=== PATIENT | female | born 1970 | race African-American/Black ===

== ENCOUNTER 2021-04-29 18:53 | Inpatient (IN) | payer MEDICAID, OTHER ==
[~2021-04-29] VITALS: Ht 160 cm; Wt 124.3 kg
[~2021-04-29 18:53] MED LIST: AMOX125S12 PO; LEVO750T46 MT
[2021-04-29] MEDS ORDERED: VANCOMYCIN 1 G PREMIX 200 ML IV ONE (22:30)
[2021-04-29] MEDS ORDERED: SODIUM CHLORIDE 0.9% 1000ML BAG (SEPSIS BOLUS) IV ONE (22:30)
[2021-04-29] MEDS ORDERED: PIPERACILLIN/TAZ 3.375G PREMIX 50 ML IV ONE (22:30)
[2021-04-30 00:07] LABS: BASOPHILS % 0.3 % (0.0-2.0); EOSINOPHILS % 0.7 % (0.0-5.0); HEMATOCRIT. 30.6 % (36.0-48.0); HEMOGLOBIN. 10.2 g/dL (12.0-16.0); LYMPHOCYTES % 9.9 % (20.0-50.0); MEAN CORPUSCULAR HEMOGLOBIN 31.1 pg (28.0-32.0); MEAN CORPUSCULAR VOLUME 93.3 fL (81.0-99.0); MEAN PLATELET VOLUME 8.3 fl (7.4-10.4); MONOCYTES % 8.3 % (2.0-8.0); NEUTROPHILS % 80.8 % (40.0-76.0); PLATELET 339 x1000/uL (130-400); RED BLOOD CELL COUNT 3.28 mill/uL (4.2-5.4); RED CELL DISTRIBUTION WIDTH 13.7 % (11.6-14.6)
[2021-04-30 00:13] LABS: PROTHROMBIN TIME 10.9 sec (9.6-11.0)
[2021-04-30 00:19] LABS: CHLORIDE 96 mEq/L (98-107)
[2021-04-30 01:42] LABS: C REACTIVE PROTEIN QUANT > 190.0 mg/L (0.0-3.0)
[2021-04-30] MEDS ORDERED: MORPHINE SULFATE 4 MG/ML CPJ (NOT FOR IM USE) IV ONE (02:15)
[2021-04-30] MEDS ORDERED: MORPHINE SULFATE 2 MG/ML CPJ (NOT FOR IM USE) IV SCH (02:15)
[2021-04-30] MEDS ORDERED: DEXTROSE 50% WATER 50ML SYRINGE IV PRN (04:15)
[2021-04-30] MEDS ORDERED: INSULIN LISPRO 100 UNITS/ML SUBCUT SCH (05:00)
[2021-04-30 07:15] LABS: CLARITY URINE CLOUDY (CLEAR); COLOR URINE YELLOW (YELLOW); KETONES URINE 1+ (NEGATIVE); LEUKOCYTE ESTERASE URINE TRACE (NEGATIVE); NITRITE URINE NEGATIVE (NEGATIVE); OCCULT BLOOD URINE 3+ (NEGATIVE); PROTEIN URINE TRACE (NEGATIVE); SPECIFIC GRAVITY URINE 1.029 (1.005-1.030)
[2021-04-30] MEDS: INSULIN LISPRO (MEDIUM DOSE) 100 UNITS/ML SUBCUT SCH ×4 (08:00→22:15)
[2021-04-30] MEDS: BLOOD SUGAR DIAGNOSTIC STRIP TEST SCH ×4 (08:00→21:00)
[2021-04-30] MEDS ORDERED: MORPHINE SULFATE 2 MG/ML CPJ (NOT FOR IM USE) IV NR (08:15)
[2021-04-30 10:00] VITALS: BP 120/62
[2021-04-30] MEDS ORDERED: ONDANSETRON HCL 4MG/2ML INJ IV PRN (11:30)
[2021-04-30 12:00] VITALS: BP 126/66
[2021-04-30] MEDS ORDERED: INSULIN GLARGINE UD 100 UNITS/ML SYR SUBCUT NR (12:00)
[2021-04-30] MEDS ORDERED: NON FORMULARY PATIENT HOME MED XX SCH (12:15)
[2021-04-30] MEDS ORDERED: *PATIENT'S OWN MEDICATION STORAGE XX SCH (12:30)
[2021-04-30] MEDS ORDERED: VANCOMYCIN 1500MG in DEXTROSE 5% WATER 250ML IV NR (13:00)
[2021-04-30] MEDS: PIPERACILLIN/TAZOBACTAM 3.375 G in DEXTROSE 5% WATER 50 ML IV SCH ×2 (13:47→22:10)
[2021-04-30 16:00] VITALS: BP 125/68
[2021-04-30] MEDS ORDERED: NALOXONE HCL 0.4MG/ML VIAL IV PRN (18:00)
[2021-04-30 20:00] VITALS: BP 126/80
[2021-04-30] MEDS: INSULIN GLARGINE UD 100 UNITS/ML SYR SUBCUT SCH (22:15)
[2021-04-30] MEDS: HYDROCODONE/ACETAMINOPHEN 10/325MG TABLET PO PRN (22:16)
[2021-05-01] VITALS: BP 111/51
[2021-05-01 04:00] VITALS: BP 116/66
[2021-05-01] MEDS ORDERED: VANCOMYCIN 750 MG PREMIX 150 ML IV SCH (05:00)
[2021-05-01 05:48] LABS: BASOPHILS % 0.3 % (0.0-2.0); EOSINOPHILS % 1.1 % (0.0-5.0); HEMATOCRIT. 25.7 % (36.0-48.0); HEMOGLOBIN. 8.6 g/dL (12.0-16.0); LYMPHOCYTES % 18.3 % (20.0-50.0); MEAN CORPUSCULAR HEMOGLOBIN 31.5 pg (28.0-32.0); MEAN CORPUSCULAR VOLUME 93.5 fL (81.0-99.0); MEAN PLATELET VOLUME 7.9 fl (7.4-10.4); MONOCYTES % 11.2 % (2.0-8.0); NEUTROPHILS % 69.1 % (40.0-76.0); PLATELET 310 x1000/uL (130-400); RED BLOOD CELL COUNT 2.75 mill/uL (4.2-5.4); RED CELL DISTRIBUTION WIDTH 13.9 % (11.6-14.6)
[2021-05-01] MEDS: PIPERACILLIN/TAZOBACTAM 3.375 G in DEXTROSE 5% WATER 50 ML IV SCH ×3 (06:00→21:12)
[2021-05-01] MEDS: BLOOD SUGAR DIAGNOSTIC STRIP TEST SCH ×4 (07:55→21:14)
[2021-05-01 08:00] VITALS: BP 116/53
[2021-05-01] MEDS: HYDROCODONE/ACETAMINOPHEN 10/325MG TABLET PO PRN ×3 (08:27→23:50)
[2021-05-01] MEDS: INSULIN LISPRO (MEDIUM DOSE) 100 UNITS/ML SUBCUT SCH ×4 (08:30→21:16)
[2021-05-01] MEDS ORDERED: LIDOCAINE HCL 1% 20ML VIAL (Pyxis) INJ ONE (09:44)
[2021-05-01] MEDS ORDERED: GENTAMICIN SULF 40MG/ML 2ML VIAL ONE (09:44)
[2021-05-01] MEDS ORDERED: LIDOCAINE HCL/PF 2% 20MG/ML 5 ML/VIAL INJ NR (10:15)
[2021-05-01] MEDS: INSULIN GLARGINE UD 100 UNITS/ML SYR SUBCUT SCH ×2 (10:51→21:17)
[2021-05-01 12:00] VITALS: BP 113/54
[2021-05-01 16:00] VITALS: BP 123/56
[2021-05-01 20:00] VITALS: BP 126/63
[2021-05-01] MEDS: VANCOMYCIN 750 MG PREMIX 150 ML IV SCH (23:36)
[2021-05-02] VITALS: BP 141/54
[2021-05-02 04:00] VITALS: BP 108/56
[2021-05-02] MEDS: PIPERACILLIN/TAZOBACTAM 3.375 G in DEXTROSE 5% WATER 50 ML IV SCH ×3 (05:01→22:00)
[2021-05-02] MEDS: BLOOD SUGAR DIAGNOSTIC STRIP TEST SCH ×4 (05:48→21:59)
[2021-05-02 07:04] LABS: HEMATOCRIT. 25.2 % (36.0-48.0); HEMOGLOBIN. 8.4 g/dL (12.0-16.0); MEAN CORPUSCULAR HEMOGLOBIN 30.8 pg (28.0-32.0); MEAN CORPUSCULAR VOLUME 92.2 fL (81.0-99.0); MEAN PLATELET VOLUME 7.8 fl (7.4-10.4); PLATELET 315 x1000/uL (130-400); RED BLOOD CELL COUNT 2.73 mill/uL (4.2-5.4); RED CELL DISTRIBUTION WIDTH 13.6 % (11.6-14.6)
[2021-05-02 08:00] VITALS: BP 105/73
[2021-05-02] MEDS ORDERED: LIDOCAINE HCL 1% 30ML VIAL (10MG/ML) ONE (08:06)
[2021-05-02] MEDS: INSULIN LISPRO (MEDIUM DOSE) 100 UNITS/ML SUBCUT SCH ×4 (08:09→21:53)
[2021-05-02] MEDS: HYDROCODONE/ACETAMINOPHEN 10/325MG TABLET PO PRN ×3 (08:12→22:02)
[2021-05-02] MEDS ORDERED: BENZONATATE 100MG CAPSULE PO PRN (10:00)
[2021-05-02] MEDS: INSULIN GLARGINE UD 100 UNITS/ML SYR SUBCUT SCH ×2 (10:22→21:59)
[2021-05-02 12:00] VITALS: BP 116/83
[2021-05-02 16:00] VITALS: BP 121/51
[2021-05-02 16:42] LABS: TOTAL IRON BINDING CAPACITY 118 ug/dL (250-450)
[2021-05-02] MEDS: VANCOMYCIN 750 MG PREMIX 150 ML IV SCH (17:31)
[2021-05-02 20:00] VITALS: BP 127/58
[2021-05-02 21:16] LABS: PLATELET ESTIMATE NORMAL
[2021-05-03] VITALS: BP 115/66
[2021-05-03 04:00] VITALS: BP 148/69
[2021-05-03] MEDS: PIPERACILLIN/TAZOBACTAM 3.375 G in DEXTROSE 5% WATER 50 ML IV SCH (05:29)
[2021-05-03] MEDS: HYDROCODONE/ACETAMINOPHEN 10/325MG TABLET PO PRN ×2 (05:30→15:49)
[2021-05-03] MEDS: BLOOD SUGAR DIAGNOSTIC STRIP TEST SCH ×3 (07:45→21:28)
[2021-05-03] MEDS: INSULIN LISPRO (MEDIUM DOSE) 100 UNITS/ML SUBCUT SCH ×3 (07:50→23:20)
[2021-05-03 08:00] VITALS: BP 144/66
[2021-05-03] MEDS: INSULIN GLARGINE UD 100 UNITS/ML SYR SUBCUT SCH ×2 (10:54→23:20)
[2021-05-03 12:00] VITALS: BP 142/65
[2021-05-03] MEDS: VANCOMYCIN 750 MG PREMIX 150 ML IV SCH (13:12)
[2021-05-03] MEDS: CEFAZOLIN 1000MG PREMIX 50 ML IV SCH ×2 (15:51→21:47)
[2021-05-03 16:00] VITALS: BP 131/65
[2021-05-03 20:00] VITALS: BP 145/70
[2021-05-04 00:02] VITALS: BP 144/63
[2021-05-04 04:00] VITALS: BP 132/60
[2021-05-04] MEDS: CEFAZOLIN 1000MG PREMIX 50 ML IV SCH ×3 (05:34→21:08)
[2021-05-04] MEDS: ACETAMINOPHEN 325MG TABLET PO PRN (05:35)
[2021-05-04] MEDS: HYDROCODONE/ACETAMINOPHEN 10/325MG TABLET PO PRN ×3 (06:09→23:55)
[2021-05-04] MEDS: BLOOD SUGAR DIAGNOSTIC STRIP TEST SCH ×4 (06:57→21:08)
[2021-05-04] MEDS: INSULIN LISPRO (MEDIUM DOSE) 100 UNITS/ML SUBCUT SCH ×4 (07:19→21:08)
[2021-05-04 08:00] VITALS: BP 144/72
[2021-05-04] MEDS ORDERED: LANTUSUD SUBCUT (10:25)
[2021-05-04] MEDS: INSULIN GLARGINE UD 100 UNITS/ML SYR SUBCUT SCH ×2 (10:43→21:06)
[2021-05-04 12:00] VITALS: BP 121/63
[2021-05-04 16:00] VITALS: BP 162/88
[2021-05-04 20:00] VITALS: BP 123/63
[2021-05-05] VITALS: BP 135/66
[2021-05-05 04:00] VITALS: BP 127/69
[2021-05-05] MEDS: CEFAZOLIN 1000MG PREMIX 50 ML IV SCH ×3 (05:53→21:06)
[2021-05-05] MEDS: BLOOD SUGAR DIAGNOSTIC STRIP TEST SCH ×4 (05:56→21:07)
[2021-05-05] MEDS: INSULIN LISPRO (MEDIUM DOSE) 100 UNITS/ML SUBCUT SCH ×4 (07:50→21:00)
[2021-05-05 08:00] VITALS: BP 164/65
[2021-05-05] MEDS: HYDROCODONE/ACETAMINOPHEN 10/325MG TABLET PO PRN ×2 (08:26→20:24)
[2021-05-05] MEDS: INSULIN GLARGINE UD 100 UNITS/ML SYR SUBCUT SCH ×2 (11:36→21:08)
[2021-05-05 12:00] VITALS: BP 153/72
[2021-05-05 16:00] VITALS: BP 145/63
[2021-05-05 20:00] VITALS: BP 125/62
[2021-05-06] VITALS: BP 138/66
[2021-05-06 04:00] VITALS: BP 159/76
[2021-05-06] MEDS: CEFAZOLIN 1000MG PREMIX 50 ML IV SCH ×3 (05:18→21:30)
[2021-05-06] MEDS: BLOOD SUGAR DIAGNOSTIC STRIP TEST SCH ×4 (06:52→21:29)
[2021-05-06] MEDS: INSULIN LISPRO (MEDIUM DOSE) 100 UNITS/ML SUBCUT SCH ×4 (07:30→21:33)
[2021-05-06 08:00] VITALS: BP 147/46
[2021-05-06] MEDS: ACETAMINOPHEN 325MG TABLET PO PRN (09:09)
[2021-05-06] MEDS: HYDROCODONE/ACETAMINOPHEN 10/325MG TABLET PO PRN ×2 (10:09→17:34)
[2021-05-06] MEDS: INSULIN GLARGINE UD 100 UNITS/ML SYR SUBCUT SCH ×2 (10:17→21:33)
[2021-05-06 12:00] VITALS: BP 147/51
[2021-05-06 16:00] VITALS: BP 129/41
[2021-05-06] MEDS ORDERED: NALOXONE HCL 0.4MG/ML VIAL IV PRN (18:45)
[2021-05-06 20:00] VITALS: BP 161/92
[2021-05-07] VITALS (7 sets, daily range): BP systolic 120–148; BP diastolic 51–75
[2021-05-07] MEDS: CEFAZOLIN 1000MG PREMIX 50 ML IV SCH ×3 (06:46→21:41)
[2021-05-07] MEDS: INSULIN LISPRO (MEDIUM DOSE) 100 UNITS/ML SUBCUT SCH ×4 (07:21→21:00)
[2021-05-07] MEDS: BLOOD SUGAR DIAGNOSTIC STRIP TEST SCH ×4 (07:21→21:46)
[2021-05-07] MEDS: HYDROCODONE/ACETAMINOPHEN 10/325MG TABLET PO PRN ×3 (07:22→21:48)
[2021-05-07] MEDS: INSULIN GLARGINE UD 100 UNITS/ML SYR SUBCUT SCH ×2 (11:24→21:46)
[2021-05-08] VITALS: BP 141/54
[2021-05-08] MEDS: CEFAZOLIN 1000MG PREMIX 50 ML IV SCH ×2 (05:42→21:43)
[2021-05-08] MEDS: INSULIN LISPRO (MEDIUM DOSE) 100 UNITS/ML SUBCUT SCH ×4 (05:46→22:12)
[2021-05-08] MEDS: BLOOD SUGAR DIAGNOSTIC STRIP TEST SCH ×4 (05:46→21:43)
[2021-05-08 08:00] VITALS: BP 140/57
[2021-05-08] MEDS: INSULIN GLARGINE UD 100 UNITS/ML SYR SUBCUT SCH ×2 (10:20→22:15)
[2021-05-08 12:00] VITALS: BP 143/55
[2021-05-08] MEDS: HYDROCODONE/ACETAMINOPHEN 10/325MG TABLET PO PRN ×2 (13:38→21:29)
[2021-05-08 16:00] VITALS: BP 127/63
[2021-05-08] MEDS ORDERED: CEFAZOLIN 1000MG PREMIX 50 ML IV SCH (18:00)
[2021-05-08 20:00] VITALS: BP 149/53
[2021-05-09] VITALS: BP 121/53
[2021-05-09] MEDS: CEFAZOLIN 1000MG PREMIX 50 ML IV SCH ×3 (05:17→20:50)
[2021-05-09] MEDS: BLOOD SUGAR DIAGNOSTIC STRIP TEST SCH ×4 (05:40→20:54)
[2021-05-09] MEDS: INSULIN LISPRO (MEDIUM DOSE) 100 UNITS/ML SUBCUT SCH ×4 (05:40→20:55)
[2021-05-09 08:00] VITALS: BP 112/52
[2021-05-09] MEDS: INSULIN GLARGINE UD 100 UNITS/ML SYR SUBCUT SCH ×2 (10:00→20:55)
[2021-05-09 12:00] VITALS: BP 131/62
[2021-05-09 16:00] VITALS: BP 38/68
[2021-05-09 20:00] VITALS: BP 115/85
[2021-05-09] MEDS: HYDROCODONE/ACETAMINOPHEN 10/325MG TABLET PO PRN (20:54)
[2021-05-10] VITALS: BP 146/56
[2021-05-10 04:00] VITALS: BP 133/61
[2021-05-10] MEDS: CEFAZOLIN 1000MG PREMIX 50 ML IV SCH ×3 (05:38→21:57)
[2021-05-10] MEDS: BLOOD SUGAR DIAGNOSTIC STRIP TEST SCH ×4 (06:33→21:57)
[2021-05-10] MEDS: INSULIN LISPRO (MEDIUM DOSE) 100 UNITS/ML SUBCUT SCH ×4 (07:50→22:07)
[2021-05-10 08:00] VITALS: BP 151/73
[2021-05-10] MEDS: INSULIN GLARGINE UD 100 UNITS/ML SYR SUBCUT SCH ×2 (10:00→21:58)
[2021-05-10] MEDS: HYDROCODONE/ACETAMINOPHEN 10/325MG TABLET PO PRN (10:57)
[2021-05-10 12:00] VITALS: BP 133/52
[2021-05-10 16:00] VITALS: BP 142/63
[2021-05-10 20:00] VITALS: BP 143/78
[2021-05-11] VITALS: BP 147/67
[2021-05-11] MEDS: HYDROCODONE/ACETAMINOPHEN 10/325MG TABLET PO PRN ×2 (00:21→13:00)
[2021-05-11 04:00] VITALS: BP 126/57
[2021-05-11] MEDS: CEFAZOLIN 1000MG PREMIX 50 ML IV SCH ×3 (05:18→21:01)
[2021-05-11] MEDS: INSULIN LISPRO (MEDIUM DOSE) 100 UNITS/ML SUBCUT SCH ×4 (07:50→21:15)
[2021-05-11] MEDS: INSULIN GLARGINE UD 100 UNITS/ML SYR SUBCUT SCH ×2 (09:29→21:16)
[2021-05-11 12:00] VITALS: BP 154/72
[2021-05-11 20:00] VITALS: BP 125/69
[2021-05-11] MEDS: BLOOD SUGAR DIAGNOSTIC STRIP TEST SCH (21:02)
[2021-05-12] VITALS (7 sets, daily range): BP systolic 112–147; BP diastolic 57–77
[2021-05-12] MEDS: CEFAZOLIN 1000MG PREMIX 50 ML IV SCH ×2 (05:27→15:29)
[2021-05-12] MEDS: HYDROCODONE/ACETAMINOPHEN 10/325MG TABLET PO PRN ×2 (05:28→16:50)
[2021-05-12] MEDS: BLOOD SUGAR DIAGNOSTIC STRIP TEST SCH ×3 (07:08→16:59)
[2021-05-12] MEDS: INSULIN LISPRO (MEDIUM DOSE) 100 UNITS/ML SUBCUT SCH ×3 (07:50→17:24)
[2021-05-12] MEDS: INSULIN GLARGINE UD 100 UNITS/ML SYR SUBCUT SCH (10:38)
== END 2021-05-13 00:35 | DRG 710 ==
LOC: ER 18:53 → MICUSO 04-30 02:04 → EDBEDREQDT 04-30 02:06 → EDBEDREQSVC 04-30 02:06 → EDBEDREQTM 04-30 02:06 → EDBEDREQ 04-30 02:06 → 6EST 04-30 09:24
PROVIDERS: ADMIT Internal Medicine; ATTEND Internal Medicine
PROC: 0SBM0ZZ Excision of Right Metatarsal-Phalangeal Joint, Open Approach (ICD-10-PCS; principal; 2021-05-01)
PROC: 0S9M0ZZ Drainage of Right Metatarsal-Phalangeal Joint, Open Approach (ICD-10-PCS; 2021-05-01)
PROC: 02HV33Z Insertion of Infusion Device into Superior Vena Cava, Percutaneous Approach (ICD-10-PCS; 2021-05-02)
PROC: B548ZZA Ultrasonography of Superior Vena Cava, Guidance (ICD-10-PCS; 2021-05-02)
DX: A41.9 Sepsis, unspecified organism (principal); N17.0 Acute kidney failure with tubular necrosis; E43 Unspecified severe protein-calorie malnutrition; I96 Gangrene, not elsewhere classified; E11.52 Type 2 diabetes mellitus with diabetic peripheral angiopathy with gangrene; M86.271 Subacute osteomyelitis, right ankle and foot; E11.621 Type 2 diabetes mellitus with foot ulcer; E87.1 Hypo-osmolality and hyponatremia; E11.69 Type 2 diabetes mellitus with other specified complication; L97.519 Non-pressure chronic ulcer of other part of right foot with unspecified severity; D64.9 Anemia, unspecified; E11.65 Type 2 diabetes mellitus with hyperglycemia; E66.9 Obesity, unspecified; L02.611 Cutaneous abscess of right foot; F41.9 Anxiety disorder, unspecified; Z20.822 Contact with and (suspected) exposure to COVID-19; E78.00 Pure hypercholesterolemia, unspecified; E87.8 Other disorders of electrolyte and fluid balance, not elsewhere classified; I10 Essential (primary) hypertension; M19.90 Unspecified osteoarthritis, unspecified site; J45.909 Unspecified asthma, uncomplicated; Z91.19 Patient's noncompliance with other medical treatment and regimen; Z68.42 Body mass index [BMI] 45.0-49.9, adult; Z71.3 Dietary counseling and surveillance; Z89.421 Acquired absence of other right toe(s)
CPT/HCPCS: 36415; 36573; 71045; 73630; 80048; 80053; 80202; 81003; 82728; 82962; 83036; 83540; 83550; 83605; 84145; 84484; 85025; 85651; 86140; 87070; 87077; 87426; 97022; 97162; 99291; A6261; C1725; C1769; C1893; J0690; J1580; J1815; J2270; J2543; J3370; J3490; J7030; J7040; J7060

== ENCOUNTER 2021-09-13 12:05 | Inpatient (IN) | payer MEDICAID, OTHER ==
[~2021-09-13] VITALS: Ht 160 cm; Wt 123.8 kg
[~2021-09-13 12:05] MED LIST changes: -AMOX125S12 PO; +LANTUSUD SUBCUT; -LEVO750T46 MT
[2021-09-13] MEDS ORDERED: ONDANSETRON HCL 4MG/2ML INJ IV STA (12:11)
[2021-09-13] MEDS ORDERED: MORPHINE SULFATE 4 MG/ML CPJ (NOT FOR IM USE) IV STA (12:11)
[2021-09-13 13:54] LABS: BASOPHILS % 0.3 % (0.0-2.0); EOSINOPHILS % 1.9 % (0.0-5.0); HEMOGLOBIN. 10.5 g/dL (12.0-16.0); LYMPHOCYTES % 23.1 % (20.0-50.0); MEAN CORPUSCULAR HEMOGLOBIN 29.7 pg (28.0-32.0); MEAN CORPUSCULAR VOLUME 87.8 fL (81.0-99.0); MEAN PLATELET VOLUME 7.6 fl (7.4-10.4); MONOCYTES % 6.4 % (2.0-8.0); NEUTROPHILS % 68.3 % (40.0-76.0); PLATELET 322 x1000/uL (130-400); RED BLOOD CELL COUNT 3.53 mill/uL (4.2-5.4); RED CELL DISTRIBUTION WIDTH 13.7 % (11.6-14.6)
[2021-09-13 14:13] LABS: CLARITY URINE CLEAR (CLEAR); COLOR URINE YELLOW (YELLOW); KETONES URINE NEGATIVE (NEGATIVE); LEUKOCYTE ESTERASE URINE NEGATIVE (NEGATIVE); NITRITE URINE NEGATIVE (NEGATIVE); OCCULT BLOOD URINE 1+ (NEGATIVE); PH URINE 5.5 (4.5-8.0); PROTEIN URINE 2+ (NEGATIVE); SPECIFIC GRAVITY URINE 1.026 (1.005-1.030)
[2021-09-13 14:14] LABS: CHLORIDE 104 mEq/L (98-107)
[2021-09-13] MEDS ORDERED: PIPERACILLIN/TAZ 3.375G PREMIX 50 ML IV ONE (14:15)
[2021-09-13 22:30] VITALS: BP 170/72
[2021-09-13 22:36] VITALS: BP 170/72
[2021-09-13] MEDS ORDERED: INSU100I28 SQ (22:56)
[2021-09-13] MEDS ORDERED: GABA-529 PO (22:56)
[2021-09-13] MEDS ORDERED: DEXTROSE 50% WATER 50ML SYRINGE IV PRN (23:45)
[2021-09-13] MEDS ORDERED: CLONIDINE 0.1MG TABLET PO PRN (23:45)
[2021-09-14] MEDS: PIPERACILLIN/TAZOBACTAM 3.375 G in DEXTROSE 5% WATER 50 ML IV SCH ×4 (01:47→21:18)
[2021-09-14] MEDS: HYDROCODONE/ACETAMINOPHEN 10/325MG TABLET PO PRN ×2 (01:48→21:13)
[2021-09-14] MEDS ORDERED: VANCOMYCIN 2,000 MG in DEXT 5% WATER 500 ML IV NR (03:00)
[2021-09-14 04:00] VITALS: BP 104/62
[2021-09-14] MEDS: INSULIN LISPRO 100 UNITS/ML SUBCUT SCH ×4 (06:24→21:17)
[2021-09-14 07:31] LABS: BASOPHILS % 0.4 % (0.0-2.0); EOSINOPHILS % 1.9 % (0.0-5.0); HEMATOCRIT. 24.6 % (36.0-48.0); HEMOGLOBIN. 8.5 g/dL (12.0-16.0); LYMPHOCYTES % 16.8 % (20.0-50.0); MEAN CORPUSCULAR HEMOGLOBIN 30.4 pg (28.0-32.0); MEAN CORPUSCULAR VOLUME 87.7 fL (81.0-99.0); MEAN PLATELET VOLUME 7.6 fl (7.4-10.4); MONOCYTES % 7.4 % (2.0-8.0); NEUTROPHILS % 73.5 % (40.0-76.0); PLATELET 296 x1000/uL (130-400); RED CELL DISTRIBUTION WIDTH 13.3 % (11.6-14.6)
[2021-09-14 07:42] LABS: CHLORIDE 101 mEq/L (98-107)
[2021-09-14 07:54] LABS: LDL CHOLESTEROL 105 mg/dL (5-100)
[2021-09-14 07:56] LABS: HDL CHOLESTEROL 31 mg/dL (40-59)
[2021-09-14 08:00] VITALS: BP 123/58
[2021-09-14] MEDS: LISINOPRIL 20MG TABLET PO SCH (08:52)
[2021-09-14] MEDS: BLOOD SUGAR DIAGNOSTIC STRIP TEST SCH ×4 (08:54→21:00)
[2021-09-14] MEDS: INSULIN GLARGINE UD 100 UNITS/ML SYR SUBCUT SCH ×2 (10:26→21:15)
[2021-09-14 12:00] VITALS: BP 148/66
[2021-09-14 16:00] VITALS: BP 153/69
[2021-09-14] MEDS ORDERED: VANCOMYCIN 1,000 MG in DEXT 5% WATER 250 ML IV SCH (16:00)
[2021-09-14 20:00] VITALS: BP 154/64
[2021-09-14] MEDS: GABAPENTIN 300MG CAPSULE PO SCH (21:13)
[2021-09-14] MEDS ORDERED: NALOXONE HCL 0.4MG/ML VIAL IV PRN (22:45)
[2021-09-15] VITALS: BP 123/67
[2021-09-15] MEDS: VANCOMYCIN 1250MG in DEXTROSE 5% WATER 250ML IV SCH ×2 (00:08→17:27)
[2021-09-15 04:00] VITALS: BP 136/64
[2021-09-15] MEDS: PIPERACILLIN/TAZOBACTAM 3.375 G in DEXTROSE 5% WATER 50 ML IV SCH ×3 (06:08→21:49)
[2021-09-15] MEDS: BLOOD SUGAR DIAGNOSTIC STRIP TEST SCH ×4 (06:57→21:21)
[2021-09-15 07:27] LABS: CHLORIDE 104 mEq/L (98-107)
[2021-09-15 07:34] LABS: HEMATOCRIT 25.5 % (36.0-48.0); HEMOGLOBIN 8.9 g/dL (12.0-16.0); MEAN CORPUSCULAR HEMOGLOBIN 30.3 pg (28.0-32.0); MEAN CORPUSCULAR VOLUME 87.1 fL (81.0-99.0); PLATELET 279 x1000/uL (130-400); RED BLOOD CELL COUNT 2.93 mill/uL (4.2-5.4); RED CELL DISTRIBUTION WIDTH 13.5 % (11.6-14.6)
[2021-09-15 07:37] LABS: TOTAL IRON BINDING CAPACITY 144 ug/dL (250-450)
[2021-09-15 08:00] VITALS: BP 155/83
[2021-09-15] MEDS ORDERED: LIDOCAINE HCL 1% 10 MG/ML 10ML VIAL ONE (08:16)
[2021-09-15] MEDS: LISINOPRIL 20MG TABLET PO SCH (08:37)
[2021-09-15] MEDS: INSULIN LISPRO 100 UNITS/ML SUBCUT SCH ×4 (08:39→21:44)
[2021-09-15] MEDS: MUPIROCIN 2% OINT 22GM TOP SCH (08:40)
[2021-09-15] MEDS: INSULIN GLARGINE UD 100 UNITS/ML SYR SUBCUT SCH ×2 (10:19→21:45)
[2021-09-15] MEDS: HYDROCODONE/ACETAMINOPHEN 10/325MG TABLET PO PRN ×2 (10:19→21:53)
[2021-09-15 18:06] LABS: CREATINE KINASE 35 IU/L (26-192)
[2021-09-15 20:00] VITALS: BP 149/54
[2021-09-15] MEDS: GABAPENTIN 300MG CAPSULE PO SCH (21:40)
[2021-09-16] VITALS: BP 135/60
[2021-09-16 04:00] VITALS: BP_SYST 102
[2021-09-16] MEDS: BLOOD SUGAR DIAGNOSTIC STRIP TEST SCH ×4 (06:41→20:29)
[2021-09-16] MEDS: PIPERACILLIN/TAZOBACTAM 3.375 G in DEXTROSE 5% WATER 50 ML IV SCH ×3 (06:42→20:41)
[2021-09-16 06:59] LABS: CHLORIDE 108 mEq/L (98-107)
[2021-09-16 08:00] VITALS: BP 148/72
[2021-09-16] MEDS: INSULIN LISPRO 100 UNITS/ML SUBCUT SCH ×4 (08:37→20:37)
[2021-09-16] MEDS: LISINOPRIL 20MG TABLET PO SCH (09:29)
[2021-09-16] MEDS: MUPIROCIN 2% OINT 22GM TOP SCH (09:32)
[2021-09-16] MEDS ORDERED: BUPIVACAINE HCL/PF 0.25% (2.5MG/ML) 10ML INFIL NR (10:15)
[2021-09-16] MEDS ORDERED: LIDOCAINE HCL 1% 20ML VIAL (Pyxis) INJ INFIL NR (10:15)
[2021-09-16] MEDS ORDERED: LISI20TA31 PO (10:16)
[2021-09-16] MEDS: INSULIN GLARGINE UD 100 UNITS/ML SYR SUBCUT SCH ×2 (10:23→20:37)
[2021-09-16] MEDS ORDERED: LIDOCAINE HCL 1% 10 MG/ML 10ML VIAL IJ NR (10:45)
[2021-09-16 12:00] VITALS: BP 153/83
[2021-09-16] MEDS: VANCOMYCIN 1GM PMX (XELLIA) 200 ML IV SCH (12:27)
[2021-09-16] MEDS: HYDROCODONE/ACETAMINOPHEN 10/325MG TABLET PO PRN (13:32)
[2021-09-16 14:52] VITALS: BP 153/83
[2021-09-16 20:00] VITALS: BP 148/80
[2021-09-16] MEDS: GABAPENTIN 300MG CAPSULE PO SCH (20:26)
[2021-09-17] VITALS: BP 146/79
[2021-09-17] MEDS: VANCOMYCIN 1GM PMX (XELLIA) 200 ML IV SCH (00:17)
[2021-09-17] MEDS: VANCOMYCIN 1250MG in DEXTROSE 5% WATER 250ML IV SCH (00:17)
[2021-09-17 04:00] VITALS: BP 130/66
[2021-09-17] MEDS: PIPERACILLIN/TAZOBACTAM 3.375 G in DEXTROSE 5% WATER 50 ML IV SCH (06:00)
[2021-09-17] MEDS: BLOOD SUGAR DIAGNOSTIC STRIP TEST SCH (06:24)
[2021-09-17] MEDS: INSULIN LISPRO 100 UNITS/ML SUBCUT SCH (06:24)
[2021-09-17] MEDS: MUPIROCIN 2% OINT 22GM TOP SCH (09:00)
[2021-09-17] MEDS: LISINOPRIL 20MG TABLET PO SCH (09:00)
== END 2021-09-17 10:37 | disposition home or self-care (01) | DRG 950 ==
LOC: ER 12:05 → 6EST 15:41 → ENRESERV 21:40 → 6EST 23:53
PROVIDERS: ADMIT Internal Medicine; ATTEND Internal Medicine
PROC: 02HV33Z Insertion of Infusion Device into Superior Vena Cava, Percutaneous Approach (ICD-10-PCS; 2021-09-15)
PROC: B518ZZA Fluoroscopy of Superior Vena Cava, Guidance (ICD-10-PCS; 2021-09-15)
PROC: 0QDP0ZZ Extraction of Left Metatarsal, Open Approach (ICD-10-PCS; principal; 2021-09-16)
DX: E11.69 Type 2 diabetes mellitus with other specified complication (principal); M86.172 Other acute osteomyelitis, left ankle and foot; E11.621 Type 2 diabetes mellitus with foot ulcer; E11.40 Type 2 diabetes mellitus with diabetic neuropathy, unspecified; L97.529 Non-pressure chronic ulcer of other part of left foot with unspecified severity; L02.612 Cutaneous abscess of left foot; E11.65 Type 2 diabetes mellitus with hyperglycemia; E66.9 Obesity, unspecified; I10 Essential (primary) hypertension; F41.9 Anxiety disorder, unspecified; Z79.4 Long term (current) use of insulin; Z79.899 Other long term (current) drug therapy; Z68.42 Body mass index [BMI] 45.0-49.9, adult
CPT/HCPCS: 36415; 36573; 73630; 73721; 80048; 80053; 80061; 80202; 81003; 82550; 82962; 83036; 83540; 83550; 85025; 85027; 85651; 86140; 87070; 87077; 87186; 87426; 93922; 99285; C1725; J1815; J2270; J2405; J2543; J3370; J3490; J7040; J7060